=== PATIENT | male | born 1945 | race Caucasian/White ===

== ENCOUNTER 2021-10-05 14:49 | Inpatient (IN) | payer MEDICARE ==
[~2021-10-05] VITALS: Ht 167.6 cm; Wt 68.3 kg
[2021-10-05] MEDS ORDERED: ASPIRIN ADULT L81 M1 PO (17:55)
[2021-10-05] MEDS ORDERED: CHLORTHALIDONE50 MG PO (17:56)
[2021-10-05] MEDS ORDERED: COLACE100 MG PO (17:57)
[2021-10-05] MEDS ORDERED: OMEGA-31000 M1 PO (17:58)
[2021-10-05] MEDS ORDERED: FLOMAX0.4 MG PO (18:00)
[2021-10-05] MEDS ORDERED: MIRALAX119 GM PO (18:02)
[2021-10-05] MEDS ORDERED: KEPPRA500 MG PO (18:03)
[2021-10-05] MEDS ORDERED: ATIVAN1 MG PO (18:05)
[2021-10-05] MEDS ORDERED: MELOXICAM15 MG PO (18:07)
[2021-10-05] MEDS ORDERED: LOPRESSOR25 MG PO (18:07)
[2021-10-05] MEDS ORDERED: TOPCARE OMEPRAZ20 MG PO (18:09)
[2021-10-05] MEDS ORDERED: PAROXETINE40 MG PO (18:10)
[2021-10-05] MEDS ORDERED: K-TAB20 MEQ PO (18:12)
[2021-10-05] MEDS ORDERED: PROVENTIL HFA6.7 GM INH (18:13)
[2021-10-05] MEDS ORDERED: REMERON15 M2 PO (18:14)
[2021-10-05] MEDS ORDERED: SERTRALINE HYDR50 MG PO (18:15)
[2021-10-05] MEDS ORDERED: SYMB160 INH (18:17)
[2021-10-05] MEDS ORDERED: TYLENOL EXTRA500 M2 PO (18:18)
[2021-10-05] MEDS ORDERED: ANBESOL9 G1 T (18:24)
[2021-10-05] MEDS ORDERED: ASPERCREME LID1 EACH T (18:28)
[2021-10-06 20:00] VITALS: BP 134/76
[2021-10-06 20:40] VITALS: BP 134/76
[2021-10-07 06:33] LABS: THYROID STIM HORMONE (HS) 3.23 uIU/ml (0.358-4.75)
[2021-10-07 08:00] VITALS: BP 156/78
[2021-10-07 08:47] LABS: BASO % 0.4 % (0.0-1.0); EOS # 0.2 10*3/uL (0.0-0.4); EOS % 3.9 % (1.0-4.0); HEMATOCRIT 29.6 % (42.0-52.0); LYMPH # 0.8 10*3/uL (1.3-4.4); LYMPH % 16.8 % (27.0-41.0); MEAN CELL VOLUME 75.1 fl (80.0-94.0); MEAN CORPUSCULAR HGB 22.3 pg (27.0-31.0); MEAN CORPUSCULAR HGB CONC 29.7 g/dl (33.0-37.0); MEAN PLATELET VOLUME 9.4 fl (9.6-12.3); MONO # 0.5 10*3/uL (0.1-1.0); MONO % 10.8 % (3.0-9.0); NEUT # 3.2 10*3/uL (2.3-7.9); NEUT % 67.9 % (47.0-73.0); PLATELET COUNT AUTOMATED 265 10*3/uL (130-400); RED BLOOD COUNT 3.94 10*6/uL (4.50-5.90); RED CELL DISTRI WIDTH 18.1 % (0-14.5); WHITE BLOOD COUNT 4.7 10*3/uL (4.8-10.8)
[2021-10-07 08:53] LABS: CREATININE 1.55 mg/dL (0.70-1.30); POTASSIUM 4.4 mmol/L (3.5-5.1)
[2021-10-07 20:00] VITALS: BP 152/86
[2021-10-08 06:59] VITALS: BP 152/84
[2021-10-08 20:00] VITALS: BP 147/87
[2021-10-09 06:59] VITALS: BP 114/89
[2021-10-09 20:00] VITALS: BP 148/72
[2021-10-10 07:47] VITALS: BP 146/69
[2021-10-10 19:12] LABS: BILIRUBIN Negative (Negative); BLOOD Negative (Negative); COLOR Yellow (Yellow); GLUCOSE Negative (Negative); KETONE Negative (Negative); LEUKO ESTERASE Negative (Negative); NITRITE Negative (Negative); UROBILINOGEN 0.2 E.U./dl (0.0-1.0)
[2021-10-10 19:19] LABS: CLARITY Clear (Clear)
[2021-10-10 19:21] LABS: BACTERIA 1+; EPITHELIAL CELLS 0-2
[2021-10-10 20:00] VITALS: BP 110/72
[2021-10-11 07:48] VITALS: BP 132/73
[2021-10-11 20:00] VITALS: BP 134/83
[2021-10-12 07:39] VITALS: BP 115/71
[2021-10-12 20:00] VITALS: BP 151/71
[2021-10-13 07:37] VITALS: BP 136/80
[2021-10-13 20:00] VITALS: BP 141/86
[2021-10-14 07:17] VITALS: BP 131/87
[2021-10-14 20:00] VITALS: BP 102/74
[2021-10-15 07:54] VITALS: BP 152/88
[2021-10-15] MEDS ORDERED: MINIPRESS1 M1 PO (09:22)
[2021-10-15] MEDS ORDERED: RIVASTIGMINE1 EAC2 T (09:22)
[2021-10-15] MEDS ORDERED: MIRTAZAPINE15 M2 PO (09:22)
[2021-10-15] MEDS ORDERED: MEMANTINE HCL10 MG PO (09:22)
[2021-10-15] MEDS ORDERED: RISPERIDONE0.5 MG PO (09:22)
== END 2021-10-15 11:37 | DRG 885 ==
LOC: 3N
PROVIDERS: Internal Medicine; Registered Nurse; ADMIT Psychiatry & Neurology Psychiatry; ATTEND Psychiatry & Neurology Psychiatry
DX: F33.2 Major depressive disorder, recurrent severe without psychotic features (principal); N17.0 Acute kidney failure with tubular necrosis; R45.851 Suicidal ideations; G30.9 Alzheimer's disease, unspecified; I48.91 Unspecified atrial fibrillation; J44.9 Chronic obstructive pulmonary disease, unspecified; I10 Essential (primary) hypertension; E78.5 Hyperlipidemia, unspecified; G40.909 Epilepsy, unspecified, not intractable, without status epilepticus; F43.10 Post-traumatic stress disorder, unspecified; R73.03 Prediabetes; F02.80 Dementia in other diseases classified elsewhere, unspecified severity, without behavioral disturbance, psychotic disturbance, mood disturbance, and anxiety; F41.1 Generalized anxiety disorder; F51.01 Primary insomnia; Z71.6 Tobacco abuse counseling

== ENCOUNTER 2021-10-06 15:20 | Emergency (ER) | payer MEDICARE ==
[~2021-10-06] VITALS: Wt 90.7 kg
[~2021-10-06 15:20] MED LIST: ANBESOL9 G1 T; ASPERCREME LID1 EACH T; ASPIRIN ADULT L81 M1 PO; ATIVAN1 MG PO; CHLORTHALIDONE50 MG PO; COLACE100 MG PO; FLOMAX0.4 MG PO; K-TAB20 MEQ PO; KEPPRA500 MG PO; LOPRESSOR25 MG PO; MELOXICAM15 MG PO; MIRALAX119 GM PO; OMEGA-31000 M1 PO; PAROXETINE40 MG PO; PROVENTIL HFA6.7 GM INH; REMERON15 M2 PO; SERTRALINE HYDR50 MG PO; SYMB160 INH; TOPCARE OMEPRAZ20 MG PO; TYLENOL EXTRA500 M2 PO
[2021-10-06 16:13] LABS: BASO % 0.5 % (0.0-1.0); EOS # 0.2 10*3/uL (0.0-0.4); EOS % 2.9 % (1.0-4.0); HEMATOCRIT 33.6 % (42.0-52.0); LYMPH % 17.6 % (27.0-41.0); MEAN CELL VOLUME 75.8 fl (80.0-94.0); MEAN CORPUSCULAR HGB 21.9 pg (27.0-31.0); MEAN CORPUSCULAR HGB CONC 28.9 g/dl (33.0-37.0); MEAN PLATELET VOLUME 8.3 fl (9.6-12.3); MONO # 0.5 10*3/uL (0.1-1.0); NEUT # 4.2 10*3/uL (2.3-7.9); NEUT % 70.8 % (47.0-73.0); PLATELET COUNT AUTOMATED 275 10*3/uL (130-400); RED BLOOD COUNT 4.43 10*6/uL (4.50-5.90); WHITE BLOOD COUNT 5.9 10*3/uL (4.8-10.8)
[2021-10-06 16:30] LABS: CREATININE 1.74 mg/dL (0.70-1.30); POTASSIUM 5.2 mmol/L (3.5-5.1); TOTAL PROTEIN 8.1 gm/dL (6.4-8.2)
[2021-10-06 16:42] LABS: ACETAMINOPHEN (TYLENOL) < 5.0 ug/ml (10-30); ETHYL ALCOHOL < 3.0 mg/dl (<3)
[2021-10-06 17:08] LABS: BILIRUBIN Negative (Negative); BLOOD Negative (Negative); CLARITY Clear (Clear); COLOR Yellow (Yellow); GLUCOSE Negative (Negative); KETONE Negative (Negative); LEUKO ESTERASE Negative (Negative); NITRITE Negative (Negative); PH 5.5 (4.5-8.0); UROBILINOGEN 0.2 E.U./dl (0.0-1.0)
[2021-10-06 17:16] LABS: URINE AMPHETAMINES < 1000 (1000ng/ml); URINE BARBITURATES < 200 (200ng/ml); URINE BENZODIAZEPINES < 200 (200ng/ml); URINE CANNABINOIDS (THC) < 50 (50ng/ml); URINE COCAINE < 300 (300ng/ml); URINE METHADONE < 300 (300ng/ml); URINE OPIATES < 300 (300ng/ml)
[2021-10-06 17:17] LABS: URINE PHENCYCLIDINE < 25 (25ng/ml)
[2021-10-06 17:35] LABS: BACTERIA TRACE; WBC 0-2 wbc/hpf (0-5)
[2021-10-06 17:36] LABS: HYALINE CAST 0-2
== END 2021-10-06 20:39 ==
LOC: ED 15:20
PROVIDERS: Emergency Medicine
DX: F32.9 Major depressive disorder, single episode, unspecified (principal); Z20.822 Contact with and (suspected) exposure to COVID-19